=== PATIENT | female | born 1955 | race Caucasian/White ===

== ENCOUNTER 2021-04-26 06:48 | Outpatient (CLI) | payer MEDICARE, OTHER | END 2021-04-26 06:49 | disposition home or self-care (01) | LOC: BICULT 06:48 | PROVIDERS: ATTEND Family Medicine | DX: R10.84 Generalized abdominal pain (principal); R93.89 Abnormal findings on diagnostic imaging of other specified body structures | CPT/HCPCS: 76856; 93975 ==

== ENCOUNTER 2023-06-16 10:53 | Outpatient (CLI) | payer MEDICARE, OTHER | END 2023-06-16 10:54 | disposition home or self-care (01) | LOC: RAD 10:53 | PROVIDERS: ATTEND Specialist | DX: R06.00 Dyspnea, unspecified (principal) | CPT/HCPCS: 71046 ==

== ENCOUNTER 2024-03-02 08:16 | Outpatient (CLI) | payer MEDICARE, OTHER | END 2024-03-02 08:17 | disposition home or self-care (01) | LOC: BICULT 08:16 | PROVIDERS: ATTEND Family Medicine | DX: R10.84 Generalized abdominal pain (principal); N85.8 Other specified noninflammatory disorders of uterus; Z90.49 Acquired absence of other specified parts of digestive tract | CPT/HCPCS: 76700; 76856 ==